=== PATIENT | male | born 1975 | race Caucasian/White ===

== ENCOUNTER → 2020-02-17 | Outpatient (CLI) | payer OTHER ==
--- NOTE | 2020-02-24 22:20 | SLS ---
SLEEP STUDY HOME SLEEP STUDY: This is a 44-year-old male patient with snoring symptoms in addition to chronic fatigue and sleepiness. The patient was referred to me for sleep apnea evaluation, knowing that he was having episodes of tachycardia and paroxysmal atrial fibrillation. My overall suspicion for obstructive sleep apnea was low. Nevertheless, based on his ongoing cardiac complications, a home sleep study was ordered. PERTINENT PHYSICAL FINDINGS: Height is 75 inches. Weight is 200 pounds and BMI is 25. TECHNICAL DESCRIPTION: The [employer]-T3 system was used to complete this home sleep study. The total recording duration was 9 hours and 59 minutes. Bedtime started at 9:09 p.m., ended at 5:36 a.m., and the total time in bed was 8 hours and 23 minutes. RESULTS: Respiratory count showed a total of one obstructive apnea, 3 mixed/central apneas, 7 obstructive hypopneas, and AHI was 1.3. OXYGENATION ANALYSIS: No major desaturations were encountered. Minimum pulse ox was 82% and the patient had a total of 7 desaturations. The pulse ox remained above 90% for the majority of the sleep study. CARDIAC SUMMARY: Average heart rate was 72, minimum heart rate 54, maximum heart rate 143. IMPRESSION: 1. Primary snoring without evidence of any sleep breathing disorder. 2. Paroxysmal atrial fibrillation. 3. Chronic systolic heart failure, ejection fraction of 40% to 45%. 4. Hyperlipidemia. 5. History of pericarditis. PLAN: No need for any further investigation. No need for CPAP therapy, as the patient does not show any signs of any significant sleep breathing disorder. The patient will be reassured. MMODL / IJN: [id number] /
== END | disposition home or self-care (01) ==
LOC: SLEEP 10:26
PROVIDERS: ATTEND Internal Medicine Critical Care Medicine
DX: R06.83 Snoring (principal); I48.0 Paroxysmal atrial fibrillation; I50.22 Chronic systolic (congestive) heart failure; E78.5 Hyperlipidemia, unspecified; Z86.79 Personal history of other diseases of the circulatory system